=== PATIENT | male | born 1985 | race African-American/Black ===

== ENCOUNTER 2019-06-25 14:43 | Emergency (ER) | payer MEDICAID ==
[~2019-06-25] VITALS: Ht 188 cm; Wt 198.0 kg
[2019-06-25] MEDS ORDERED: ACETAMINOPHEN 500MG TABLET PO ONE (19:00)
[2019-06-25 21:02] VITALS: BP 128/64
== END 2019-06-25 21:00 | disposition home or self-care (01) ==
LOC: ER 14:43
DX: M23.8X2 Other internal derangements of left knee (principal); F12.90 Cannabis use, unspecified, uncomplicated; F17.210 Nicotine dependence, cigarettes, uncomplicated
CPT/HCPCS: 73560; 99283; Z7610